=== PATIENT | female | born 2000 | race African-American/Black ===

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

== ENCOUNTER 2018-02-25 16:08 | Emergency (ER) | payer BC, OTHER ==
[2018-02-25 16:43] VITALS: BP 145/69
--- NOTE | 2018-02-25 17:09 | UC ---
Respiratory Complaint HPI - HPI Summary HPI Summary: 17-year-old woman comes in with a chief complaint of 10 days of upper respiratory tract infection symptoms. Discussed cough chest congestion. having fevers. She has a history of pneumonia and she feels like she has pneumonia. Her sputum varies in color from yellow to brown. She is using her albuterol and helps some with shortness of breath. She has splinting chest pain in the middle of her chest. - History of Current Complaint Chief Complaint: UCRespiratory Stated Complaint: COUGH Time Seen by Provider: 02/25/18 16:58 Hx Last Menstrual Period: NOVEMBER 2017 Pain Intensity: 6 - Allergies/Home Medications Allergies/Adverse Reactions: Allergies Allergy/AdvReac Type Severity Reaction Status Date / Time Penicillins Allergy Edema Verified 02/25/18 16:44 Home Medications: Home Medications Acetaminophen TAB* [Tylenol TAB*] 650 mg PO PRN 02/25/18 [History] Ibuprofen TAB* [Advil TAB*] 600 mg PO PRN 02/25/18 [History] PMH/Surg Hx/FS Hx/Imm Hx Respiratory History: Pneumonia - Surgical History Surgical History: Yes Surgery Procedure, Year, and Place: Tonsillectomy - Family History Known Family History: Positive: Diabetes - Social History Alcohol Use: Occasionally Substance Use Type: Marijuana Smoking Status (MU): Never Smoked Tobacco - Immunization History Most Recent Influenza Vaccination: unk Most Recent Pneumonia Vaccination: unk Review of Systems All Other Systems Reviewed And Are Negative: Yes Constitutional: Positive: Fever Skin: Positive: Negative Eyes: Positive: Negative ENT: Positive: Sore Throat, Ear Ache, Nasal Discharge, Sinus Congestion Respiratory: Positive: Shortness Of Breath, Cough Cardiovascular: Positive: Chest Pain Gastrointestinal: Positive: Negative Genitourinary: Positive: Negative Motor: Positive: Negative Neurovascular: Positive: Negative Musculoskeletal: Positive: Negative Neurological: Positive: Negative Psychological: Positive: Negative Is Patient Immunocompromised?: No Physical Exam Triage Information Reviewed: Yes Appearance: No Pain Distress, Well-Nourished, Ill-Appearing - MILD Vital Signs: Initial Vital Signs Temp 98.3 F 02/25/18 16:40 Pulse 84 02/25/18 16:40 Resp 18 02/25/18 16:40 BP 145/69 02/25/18 16:40 Pulse Ox 100 02/25/18 16:40 Vital Signs Reviewed: Yes Eye Exam: Normal Eyes: Positive: Conjunctiva Clear ENT: Positive: Pharyngeal erythema, Nasal congestion, Nasal drainage, TMs normal Neck exam: Normal Neck: Positive: Supple Respiratory: Positive: No respiratory distress, Rhonchi Cardiovascular: Positive: RRR Musculoskeletal Exam: Normal Musculoskeletal: Positive: Strength Intact, ROM Intact Neurological Exam: Normal Neurological: Positive: Alert Psychological Exam: Normal Psychological: Positive: Age Appropriate Behavior Skin Exam: Normal UC Diagnostic Evaluation - Laboratory O2 Sat by Pulse Oximetry: 100 Respiratory Course/Dx - Course Course Of Treatment: Order Information: CHEST PA LAT 2 VWS. Accession Number: [id number]. CPT: 62042. Indication: Cough and fever. 2 views of the chest demonstrate no mediastinal shift. Heart is of normal size and. configuration. There is airspace disease in the right base consistent with right lower. lobe pneumonia. Left lung field is clear. Findings are new since previous exam of 2017. IMPRESSION: Findings consistent with right basilar pneumonia. . < Electronically signed by Poonam Reed MD in OV> 02/25/18 [id number]. X-ray results discussed with the patient. The plan is to treat with azithromycin. To follow- up with the [facility]. Recheck sooner if worse. - Differential Dx/Diagnosis Provider Diagnoses: PNEUMONIA Discharge - Sign-Out/Discharge Documenting (check all that apply): Patient Departure All imaging exams completed and their final reports reviewed: Yes - Discharge Plan Condition: Stable Disposition: HOME Prescriptions: Azithromyxin CRISTOFER (NF) [Z-Cristofer (Zithromax) 250 mg tabs #6] 2 tab PO .TODAY, THEN 1 DAILY #6 tab Patient Education Materials: Community Acquired Pneumonia (ED) Referrals: [facility] @ [Outside] Additional Instructions: FOLLOW UP WITH [facility]. GET RECHECKED FOR ANY WORSENING OF YOUR CONDITION OR QUESTIONS OR CONCERNS. - Billing Disposition and Condition Condition: STABLE Disposition: Home
== END 2018-02-25 18:00 | disposition home or self-care (01) ==
LOC: UCEAST 16:08
DX: J18.9 Pneumonia, unspecified organism (principal); Z88.0 Allergy status to penicillin
CPT/HCPCS: 71046; 99212; G0463